=== PATIENT | female | born 1960 | race African-American/Black ===

== ENCOUNTER 2018-06-09 14:34 | Emergency (ER) | payer MEDICARE, MEDICAID ==
[~2018-06-09] VITALS: Ht 162.6 cm; Wt 60.2 kg
[~2018-06-09 14:34] MED LIST: GABA-532; GABA-532 PO; IBUP-1985 PO; IBUP-1986 PO; INSU100V9; LISI10TA4; METF-438; ZOLP5TAB8
[2018-06-09 14:39] VITALS: BP 116/69
[2018-06-09] MEDS ORDERED: BENZ-16 PO (16:21)
== END 2018-06-09 16:46 | disposition home or self-care (01) ==
LOC: ER 14:34
DX: R05 Cough (principal); E11.9 Type 2 diabetes mellitus without complications; G89.29 Other chronic pain; Z88.0 Allergy status to penicillin
CPT/HCPCS: 99283

== ENCOUNTER 2019-01-04 08:34 | Outpatient (CLI) | payer MEDICARE, MEDICAID ==
[~2019-01-04 08:34] MED LIST changes: +BENZ-16 PO
[2019-01-04 09:37] LABS: BASOPHILS % (AUTO) 0.5 % (0-1); EOSINOPHILS # (AUTO) 0.2 X10'3 (0-0.9); EOSINOPHILS % (AUTO) 4.7 % (0-6); HEMATOCRIT 32.7 % (35.0-45.0); HEMOGLOBIN 10.8 g/dl (12.0-16.0); LYMPHOCYTES # (AUTO) 2.3 X10'3 (1.1-4.8); LYMPHOCYTES % (AUTO) 46.5 % (21-51); MEAN CORPUSCULAR HEMOGLOBIN 30.8 PG (27.0-31.0); MEAN CORPUSCULAR VOLUME 93.3 FL (78-98); MONOCYTES # (AUTO) 0.3 X10'3 (0-0.9); MONOCYTES % (AUTO) 6.5 % (2-12); NEUTROPHILS # (AUTO) 2.1 X10'3 (1.8-7.7); NEUTROPHILS % (AUTO) 41.8 % (42-75); PLATELET COUNT 260 X10'3 (140-440); RED CELL DISTRIBUTION WIDTH 13.2 % (11.5-14.5)
[2019-01-04 09:49] LABS: ALANINE AMINOTRANSFERASE 30 U/L (12-78); ALBUMIN 3.7 G/DL (3.4-5.0); ALBUMIN/GLOBULIN RATIO 0.9 (1.1-1.5); ALKALINE PHOSPHATASE 98 IU/L (46-116); ANION GAP 9 (8-16); ASPARTATE AMINO TRANSFERASE 11 U/L (10-37); BILIRUBIN,TOTAL 0.2 MG/DL (0.1-1.0); BLOOD UREA NITROGEN 28 MG/DL (7-18); BUN/CREATININE RATIO 20.6 (6.6-38.0); CALCIUM 8.5 MG/DL (8.5-10.1); CHLORIDE 105 MMOL/L (99-107); CREATININE 1.36 MG/DL (0.40-0.90); GLUCOSE 143 MG/DL (70-104); POTASSIUM 4.2 MMOL/L (3.5-5.1); SODIUM 140 MMOL/L (135-145); TOTAL CARBON DIOXIDE 25.9 MMOL/L (24-32); TOTAL PROTEIN 7.6 G/DL (6.4-8.2); eGFR 48 ML/MIN
[2019-01-04 10:16] LABS: PARTIAL THROMBOPLASTIN TIME 27 SECONDS (22-32)
== END 2019-01-04 23:59 | disposition home or self-care (01) ==
LOC: LAB 08:34
PROVIDERS: ATTEND Otolaryngology
DX: D69.1 Qualitative platelet defects (principal); E11.9 Type 2 diabetes mellitus without complications; I10 Essential (primary) hypertension
CPT/HCPCS: 36415; 80053; 85025; 85576; 85610; 85730